=== PATIENT | female | born 2000 | race Caucasian/White ===

== ENCOUNTER 2021-08-02 22:51 | Emergency (ER) | payer MEDICAID ==
[~2021-08-02] VITALS: Ht 160 cm; Wt 44.2 kg
[2021-08-02] MEDS ORDERED: LORazepam 1 MG tablet PO ONE (23:40)
[2021-08-03] MEDS ORDERED: OLANZapine 2.5MG tablet PO ONE (00:15)
[2021-08-03] MEDS ORDERED: OLANZapine 2.5MG tablet PO SCH (00:15)
[2021-08-03] MEDS: olanzapine 10mg tablet PO ONE ×2 (00:15→00:38)
[2021-08-03 00:17] LABS: URINE HCG NEGATIVE (NEG)
[2021-08-03 00:20] LABS: URINE AMPHETAMINE SCREEN NEGATIVE (Neg); URINE BARBITUATE SCREEN NEGATIVE (Neg); URINE BENZODIAZEPINES SCREEN NEGATIVE (Neg); URINE CANNABINOID SCREEN NEGATIVE (Neg); URINE COCAINE SCREEN NEGATIVE (Neg); URINE METHADONE SCREEN NEGATIVE (Neg); URINE OPIATE SCREEN NEGATIVE (Neg); URINE PHENCYCLIDINE SCREEN NEGATIVE (Neg)
--- NOTE | 2021-08-03 00:46 | NUR ---
pt refused medication reporting she does not feel safe taking it as RN did not wash her hands in front of pt. Pt peppers rn with questions not allowing for full answers before jumping to the next question. She requests to wait for zyprexa until she is on the other side. Pt unwilling to change into green scrubs until she is on the other side.
[2021-08-03 01:27] LABS: BASOPHILS % (AUTO) 0.6 % (0-1); EOSINOPHILS # (AUTO) 0.1 X10'3 (0-0.9); HEMATOCRIT 35.9 % (35.0-45.0); HEMOGLOBIN 12.4 g/dl (12.0-16.0); LYMPHOCYTES % (AUTO) 24.9 % (21-51); MEAN CORPUSCULAR HEMOGLOBIN 29.6 PG (27.0-31.0); MEAN CORPUSCULAR HGB CONC 34.5 g/dL (33.0-36.5); MEAN PLATELET VOLUME 7.9 FL (7.4-10.4); MONOCYTES # (AUTO) 0.7 X10'3 (0-0.9); MONOCYTES % (AUTO) 8.8 % (2-12); NEUTROPHILS # (AUTO) 5.1 X10'3 (1.8-7.7); NEUTROPHILS % (AUTO) 64.7 % (42-75); PLATELET COUNT 252 X10'3 (140-440); RED BLOOD COUNT 4.18 X10'6 (4.20-5.60); RED CELL DISTRIBUTION WIDTH 13.2 % (11.5-14.5); WHITE BLOOD COUNT 7.9 X10'3 (4.5-11.0)
[2021-08-03 01:41] LABS: ALANINE AMINOTRANSFERASE 41 U/L (12-78); ALBUMIN 4.3 G/DL (3.4-5.0); ALBUMIN/GLOBULIN RATIO 1.6 (1.1-1.5); ALKALINE PHOSPHATASE 74 IU/L (20-180); ANION GAP 10 (8-16); ASPARTATE AMINO TRANSFERASE 28 U/L (10-37); BILIRUBIN,TOTAL 0.3 MG/DL (0.1-1.0); BLOOD UREA NITROGEN 8 MG/DL (7-18); BUN/CREATININE RATIO 8.5 (6.6-38.0); CHLORIDE 109 MMOL/L (99-107); CREATININE 0.94 MG/DL (0.40-0.90); GLUCOSE 96 MG/DL (70-104); POTASSIUM 3.5 MMOL/L (3.5-5.1); SODIUM 147 MMOL/L (135-145); TOTAL CARBON DIOXIDE 27.9 MMOL/L (24-32); eGFR 76 ML/MIN
[2021-08-03 01:50] LABS: ETHANOL < 0.010 GM/DL (0.0-0.010)
--- NOTE | 2021-08-03 03:00 | NUR ---
The patient moved to bed 26 in the ER overflow. She was cooperative but anxious, distracted and focused on germs. She stated that she is seen in Dr. Yanes office and has been diagnoised with depression but the patient appears to be hallucinating although when asked she stated, "I feel like I'm under attack" She explained that she feels that she is under attack by the devil. She stated that she shouldn't be here and can't understand why her mother brought her here. She did take the zyprexa. Her hair is matted and she appears very thin.
--- NOTE | 2021-08-03 03:00 | NUR ---
Hamzah esposito in [facility] - 08/03/21 at 0337 by LETTY The patient moved to bed 12
[2021-08-03] MEDS ORDERED: olanzapine 10mg tablet PO STA (03:02)
[2021-08-03] MEDS ORDERED: FLUO-12 PO (03:27)
[2021-08-03] MEDS ORDERED: HYDROXYZINE (03:27)
--- NOTE | 2021-08-03 03:41 | NUR ---
Packet sent to [facility]
--- NOTE | 2021-08-03 05:04 | NUR ---
The patient appears to be sleeping
--- NOTE | 2021-08-03 07:03 | NUR ---
Pt sleeping, curled up on left side. Respirations even and unlabored.
--- NOTE | 2021-08-03 09:04 | NUR ---
Pt sitting up in bed, pt requested an additonal tray. Pt is vegetarian and unable to eat the extra tray left by dietary. Pt appears to be paranoid, hypervigilant to her surroundings. Chief Medical Technologist left cover on food tray as pt is fixated on germs. Pt requested hand machine technician before she ate. Pt continues to deny suicidal thoughts, auditory/visual hallucinations. Pt is pleasant and cooperative. Noted some OCD characteristics; pt lined her socks up in a row on the floor.
--- NOTE | 2021-08-03 09:45 | NUR ---
[facility] at bedside.
--- NOTE | 2021-08-03 10:45 | NUR ---
Pt's father came to see pt, but pt declined to see him. He was upset and requested to speak with nurse. Father was under the impression that he had legal guardianship of his 20 year old daughter and by law he could visit her. Field Research Associate was able to talk with him and suggested he try calling his daughter. [facility] spoke with pt's mother early in the morning.
--- NOTE | 2021-08-03 11:05 | NUR ---
Patient resting comfortably, no distress noted.
--- NOTE | 2021-08-03 11:30 | NUR ---
Pt's father called. Pt does not want to speak with either parent at this time.
--- NOTE | 2021-08-03 13:35 | NUR ---
Pt sitting up eating her lunch. Pt is slightly irritated because "I can't eat meat." Pt states she is "vegan," but doesn't eat vegtables or Tofu. Pt states "I eat macaroni and cheese, pudding and mashed potatoes." Pt is difficult to interrupt at times, but can be redirected. Pt states "I want to be transferred to [facility], they have pudding."
[2021-08-03] MEDS ORDERED: HYDROXYZINE PO (14:22)
[2021-08-03 15:13] LABS: UA COLLECTION TYPE CLN CATCH MIDSTREAM
[2021-08-03 15:15] LABS: CLARITY,URINE SLIGHTLY CLOUDY (Clear); COLOR,URINE YELLOW (Yellow)
--- NOTE | 2021-08-03 15:15 | NUR ---
Pt talking with [facility]. Pt felt she wasn't informed about her placment to [facility]. Pt under the impression she was being transferred to [facility]. Conversation is appropriate, no behaviors noted.
[2021-08-03 15:16] LABS: PROTEIN,URINE 100 mg/dl (Neg)
[2021-08-03 15:17] LABS: GLUCOSE, URINE NEGATIVE (Neg); KETONES,URINE NEGATIVE (Neg); LEUKOCYTE ESTERASE ,URINE NEGATIVE (Neg); NITRITES, URINE NEGATIVE (Neg); OCCULT BLOOD,URINE NEGATIVE (Neg)
[2021-08-03 15:21] LABS: MUCUS STRANDS FEW /LPF (Neg); SQUAMOUS EPITHELIAL CELL,UR FEW /LPF (FEW)
[2021-08-03 15:22] LABS: BACTERIA,URINE 1+ /HPF (Neg); RBC,URINE 0-2 /HPF (0-2); WBC,URINE 0-4 /HPF (0-4)
--- NOTE | 2021-08-03 15:53 | NUR ---
FAxed U/A results to [facility] at [facility].
--- NOTE | 2021-08-03 17:34 | NUR ---
Pt woke for vitals and was compliant. Pt states "don't wake me for dinner." Explained to pt that she will be picked up and transferred to [facility] at 1999.
[2021-08-03 19:55] VITALS: BP 117/79
== END 2021-08-03 19:57 ==
LOC: ER 22:52
DX: F23 Brief psychotic disorder (principal); Z20.822 Contact with and (suspected) exposure to COVID-19; F30.9 Manic episode, unspecified; Z79.899 Other long term (current) drug therapy
CPT/HCPCS: 36415; 80053; 80305; 80320; 81001; 81025; 84443; 85025; 87635; 99285; C9803

== ENCOUNTER 2021-09-01 21:09 | Emergency (ER) | payer MEDICAID ==
[~2021-09-01] VITALS: Ht 160 cm; Wt 45.5 kg
[~2021-09-01 21:09] MED LIST: CHOL100012 PO; FLUV100T3 PO; HYDR-3686 PO; TRAZ-251 PO
[2021-09-01 21:10] VITALS: BP 153/106
== END 2021-09-01 23:45 | disposition left against medical advice (07) ==
LOC: ER 21:10
DX: R56.9 Unspecified convulsions (principal); Z53.21 Procedure and treatment not carried out due to patient leaving prior to being seen by health care provider

== ENCOUNTER 2024-09-24 13:09 | Emergency (ER) | payer BC, MEDICAID ==
[~2024-09-24] VITALS: Ht 160 cm; Wt 66.6 kg
[~2024-09-24 13:09] MED LIST changes: -CHOL100012 PO; +DOCU-396 PO; +FLUO40CA10 PO; +FLUV100C2 PO; -FLUV100T3 PO; +PROP20TA6 PO; -TRAZ-251 PO
[2024-09-24 13:25] VITALS: TEMP 99.1
[2024-09-24 15:36] LABS: BASOPHILS # (AUTO) 0.1 X10'3 (0-0.2); BASOPHILS % (AUTO) 0.7 % (0-1); EOSINOPHILS # (AUTO) 0.2 X10'3 (0-0.9); EOSINOPHILS % (AUTO) 2.2 % (0-6); HEMATOCRIT 41.9 % (35.0-45.0); LYMPHOCYTES # (AUTO) 2.5 X10'3 (1.1-4.8); LYMPHOCYTES % (AUTO) 30.9 % (21-51); MEAN CORPUSCULAR HEMOGLOBIN 29.4 PG (27.0-31.0); MEAN CORPUSCULAR HGB CONC 33.5 g/dL (33.0-36.5); MEAN CORPUSCULAR VOLUME 87.7 FL (78-98); MEAN PLATELET VOLUME 8.5 FL (7.4-10.4); MONOCYTES # (AUTO) 0.6 X10'3 (0-0.9); MONOCYTES % (AUTO) 6.9 % (2-12); NEUTROPHILS # (AUTO) 4.8 X10'3 (1.8-7.7); NEUTROPHILS % (AUTO) 59.3 % (42-75); PLATELET COUNT 298 X10'3 (140-440); RED BLOOD COUNT 4.78 X10'6 (4.20-5.60); RED CELL DISTRIBUTION WIDTH 12.7 % (11.5-14.5); WHITE BLOOD COUNT 8.1 X10'3 (4.5-11.0)
[2024-09-24 16:05] LABS: ALANINE AMINOTRANSFERASE 19 U/L (12-78); ALBUMIN 4.5 G/DL (3.4-5.0); ALBUMIN/GLOBULIN RATIO 1.4 (1.1-1.5); ALKALINE PHOSPHATASE 60 IU/L (46-116); ANION GAP 13 (8-16); ASPARTATE AMINO TRANSFERASE 16 U/L (10-37); BILIRUBIN,TOTAL 0.5 MG/DL (0.1-1.0); BLOOD UREA NITROGEN 6 MG/DL (7-18); BUN/CREATININE RATIO 6.9 (10.0-20.0); CALCIUM 9.4 MG/DL (8.5-10.1); CHLORIDE 106 MMOL/L (99-107); CREATININE 0.87 MG/DL (0.40-0.90); GLUCOSE 90 MG/DL (70-104); LIPASE 36 U/L (16-77); POTASSIUM 3.9 MMOL/L (3.5-5.1); SODIUM 144 MMOL/L (135-145); TOTAL CARBON DIOXIDE 24.8 MMOL/L (24-32); TOTAL PROTEIN 7.8 G/DL (6.4-8.2); eCRCL 83 ML/MIN; eGFR 81 ML/MIN
[2024-09-24 18:18] LABS: HCG SERUM QL NEGATIVE
[2024-09-24] MEDS ORDERED: KETO10TA2 PO (22:16)
[2024-09-24] MEDS ORDERED: ACET-2006 PO (22:16)
[2024-09-24] MEDS ORDERED: ONDA-245 PO (22:16)
[2024-09-24] MEDS: acetaminophen 325mg tablet PO ONE (22:34)
[2024-09-24] MEDS: ketorolac trometh 15mg/ml vial 15 MG/ML ML IM ONE (22:35)
[2024-09-24] MEDS: ondansetron 4mg rapidly disintigrating tab PO ONE (22:35)
[2024-09-24] MEDS ORDERED: POLY119P2 PO (22:44)
[2024-09-24 22:50] VITALS: BP 127/86; PULSE 85; RESP 16; O2SAT 96
[2024-09-24 23:14] LABS: BILIRUBIN,URINE NEGATIVE (Neg); CLARITY,URINE CLEAR (Clear); COLOR,URINE YELLOW (Yellow); GLUCOSE, URINE NEGATIVE (Neg); KETONES,URINE >=80 mg/dl (Neg); LEUKOCYTE ESTERASE ,URINE NEGATIVE (Neg); NITRITES, URINE NEGATIVE (Neg); OCCULT BLOOD,URINE MODERATE (Neg); PROTEIN,URINE 100 mg/dl (Neg); UROBILINOGEN,URINE 0.2 E.U/dL (0.2-1.0)
[2024-09-24 23:19] LABS: UA COLLECTION TYPE CLN CATCH MIDSTREAM
[2024-09-24 23:24] LABS: BACTERIA,URINE 3+ /HPF (Neg); SQUAMOUS EPITHELIAL CELL,UR MANY /LPF (FEW)
== END 2024-09-24 22:52 | disposition home or self-care (01) ==
LOC: ER 13:10
DX: B33.8 Other specified viral diseases (principal); Z88.2 Allergy status to sulfonamides; Z79.899 Other long term (current) drug therapy
CPT/HCPCS: 36415; 74176; 80053; 81001; 83690; 84703; 85025; 96372; 99285; J1885